=== PATIENT | male | born 1995 | race Caucasian/White ===

== ENCOUNTER 2025-04-23 09:33 | Outpatient (RCR) | payer OTHER, SELFPAY ==
--- NOTE | 2025-04-23 09:05 | BH.SGPN.GN ---
Behaviors/Verbalizations/Mental Status: [] Eye contact is good. Motor activity is appropriate. Appearance is casual. Speech is Appropriate. Mood is depressed. Affect is flat. Thoughts are linear and logical. No evidence of psychosis. Reviewed daily check in sheet and no reports of suicidal ideations. Client Response/Progress/Benefit: [] Pt participated when prompted. Daily symptom tracker notes 2/5 for depression and agitation. Today was pt?s first day in IOP level of care. Very briefly introduced himself and shared with the group that his primary issue is related to depression. Did not elaborate any further. Group welcomed him and provided feedback and advice for his first day and week in IOP which was beneficial. No progress noted as this was his first day. Will continue in [facility] to maintain safety, prevent decompensation/re-admission to psych unit, and to improve functioning. Narrative Note: []
--- NOTE | 2025-04-23 10:00 | BH.SGPN.GN ---
Behaviors/Verbalizations/Mental Status: []Eye contact is good. Motor activity is appropriate. Appearance is casual. Speech is Appropriate. Mood is anxious and depressed. Affect is congruent. Thoughts are linear and logical. No evidence of psychosis. Client Response/Progress/Benefit: [] Pt was a semi-active participant in group discussions. Attentive during psychoeducation. Contributed when prompted during interactive discussions in which peers attempted to define crisis. Group identified crisis examples. Group also worked together to identify warning signs and unhealthy responses to crisis which included shutting down, isolation, avoidance, over-thinking, disordered eating, and self-harm. Pt identified top 3 warning signs as: racing thoughts, shutting down, and avoidance. Benefited from increased understanding of crisis and awareness of personal responses to crisis. Pt will continue IOP tx to promote mood stability, reduce negative thinking patterns, and increase distress tolerance. Narrative Note: []
--- NOTE | 2025-04-23 11:10 | BH.SGPN.GN ---
Behaviors/Verbalizations/Mental Status: []Pt alert and oriented, appropriate grooming/appearance. Eye contact fair. Motor activity appropriate. Speech within normal limits. Affect congruent, mood depressed and anxious. Thoughts linear, logical, no signs of hallucinations or delusions. Client Response/Progress/Benefit: []Pt was an engaged participant in group discussions. Attentive during psychoeducation. In small group pt along with peers developed an active plan for their crisis warning signs. Pt identified three crisis warning signs as well as an action plan for each. One crisis warning sign was ignoring the problem. Pt identified strategies to help with this such as: Journaling about the issue, choosing a decision instead of overly analyzing, talking to someone to get different perspective, and using opposite action. Benefited from increased awareness of crisis warning signs and by developing crisis intervention strategies. Will continue in IOP to increase healthy coping skills, improve daily functioning, and prevent decompensation
--- NOTE | 2025-04-23 15:04 | BH.COMM_ITS ---
Communication Note Communication with Client Communication Note: Met with pt to complete initial paperwork and administer the CSSR-S screening and risk assessment. Pt is a moderate risk based on symptoms from the past month. Pt denies any active SI, plan, or intent within the past month but does note thoughts of within the past month with passive thoughts of methods. Pt also has history of suicidal ideations that pt reports are fleeting and intrusive in nature, not because he wants to . Pt shared he had thoughts of shooting self, crashing car, or overdosing when he has been depressed and overwhelmed in the past. Pt stated these thoughts are more passive in nature and he does not want to kill self. No weapons at home per pt report. Patient was admitted to [facility] in March from 04/05/25 to 04/10/2025 for suicidal ideation. Admits that in November experienced some worsening depression secondary to some recognition of a porn addiction. Pt reports he does not want to but does not want to be in pain any longer. Pt is future oriented. Discussed case with Dr. Coulter and pt will be admitted to [facility] tx with a diagnosis of Major Depressive Disorder F33.2
--- NOTE | 2025-04-24 09:00 | BH.SGPN.GN ---
Behaviors/Verbalizations/Mental Status: [] Client alert and oriented, casual appearance. Eye contact fair. Motor activity appropriate. Speech within normal limits. Affect constricted, mood irritable. Thoughts linear, logical, no signs of hallucinations or delusions. Reviewed client's symptom tracker, no risk for suicidal ideation, plan, or intent. Client Response/Progress/Benefit: [] Client responded well to session AEB listening to others and sharing thoughts/feelings. Client stated mental health positive as gaining awareness from group topic yesterday that he has been using the defense mechanism of projection. Client reported it helped him understand how he has been coping and how it is negatively impacting to self and others. Client reported current stressor as work still hasn't responded about if his leave of absence is approved. Client stated it is common to not get a response for 2-3 weeks which he stated is incredibly frustrating. Appeared to benefit from support from peers. Will continue IOP tx to improve emotion regulation, challenge distorted thoughts, and prevent decompensation. Narrative Note: []
--- NOTE | 2025-04-24 10:10 | BH.SGPN.GN ---
Behaviors/Verbalizations/Mental Status: [ ] Client alert and oriented, casually dressed and groomed. Eye contact good. Motor activity appropriate. Speech within normal limits. Affect congruent, mood euthymic. Thoughts linear, logical, no signs of hallucinations or delusions. Client Response/Progress/Benefit: [] Client was an semi active participant in activity and taking notes during group discussion. Attentive during psychoeducation on coping skills, why people use unhealthy coping skills, and how to replace unhealthy coping skills. Benefited from increased understanding of unhealthy coping skills and the need for developing healthy interna and external coping skills. Client will continue IOP tx to prevent decompensation, increase self care, and improve daily functioning. Narrative Note: []
--- NOTE | 2025-04-24 11:10 | BH.SGPN.GN ---
Behaviors/Verbalizations/Mental Status: [] Client alert and oriented, casually dressed and groomed. Eye contact good. Motor activity appropriate. Speech within normal limits. Affect congruent mood euthymic. Thoughts linear, logical, no signs of hallucinations or delusions. Client Response/Progress/Benefit: [] Client responded well to session AEB taking notes and providing some input and examples throughout. Group discussed the different categories of coping skills which included distraction, emotional release, grounding, self-love, and thought challenging. Client created a coping skill menu identifying various skills to try in each category. Client?s coping skill menu included:walking, journaling, meditation, postive thoughts, and checking evidence of thoughts. Appeared to benefit from increasing repertoire of healthy coping skills. Client will continue IOP tx to improve daily functioning, reduce negative thinking, and increase application of healthy coping skills. Narrative Note: []
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
--- NOTE | 2025-04-25 07:52 | BH.DR.ITP ---
Initial Treatment Plan Patient Information Visit Information: Initial Treatment Plan Patient Information Visit Information: ADMISSION DATE: EXPECTED LOS: 4-6 weeks Problems/Symptoms Problem #1:: Depression Symptom:: Sadness, hopelessness, worthlessness, anhedonia, low energy, recent suicidal ideation, low motivation Problem #2:: Anxiety Symptom:: Rumination, worry
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
[2025-04-25 08:31] VITALS: BP 136/87; PULSE 78
--- NOTE | 2025-04-25 09:05 | BH.SGPN.GN ---
Behaviors/Verbalizations/Mental Status: [] Eye contact is good. Motor activity is appropriate. Appearance is casual. Speech is Appropriate. Mood is depressed. Affect is congruent. Thoughts are linear and logical. No evidence of psychosis. Reviewed daily check in sheet and pt reports 3/5 for suicidal ideations and 3/5 for intent. Therapist to meet with patient today. Client Response/Progress/Benefit: [] Pt participated when prompted however check-in was very brief. Daily symptom tracker notes 3/5 for depression and 2/5 for agitation and self-harm urges. Unable to identify any mental health wins or healthy habits. He stated issue with his relationship however did not elaborate. Distracted and disengaged. No progress noted. Will continue in IOP to maintain safety, prevent decompensation/re-admission to psych unit, and to increase healthy coping. Narrative Note: []
--- NOTE | 2025-04-25 10:40 | BH.MDN ---
Multi-Disciplinary Note Note 60-min Individual: Time Started:: 10:40 Date: 04/28/25 Purpose of session/treatment goals addressed:: Utilized session to gather pertinent history, review current symptoms, and begin to develop treatment plan. Eye Contact:: Poor Motor Activity:: Appropriate Appearance:: Disheveled Speech:: Soft Mood:: Depressed Affect:: Flat Thoughts:: Linear Staff Interventions:: rapport building, treatment planning and goal setting Client Response:: Tearful throughout the session. He had declined to share in process group this AM and appear depressed and flat. Shared that pt and his fianc? often search out and view videos/podcasts which provide psychoeducation on his mental health struggles. He shared that this can be very intense. In the recent past a video caused such significant distress that he cried in the parking lot for almost an hour. A video they watched last night caused decompensation as well as he began to blame himself for communication issues with fianc?. He elaborated that the video described how he manipulates others by being quiet. By not responding or communicating effectively his fianc? will internalize and blame herself. While these videos provide insight they do not elaborate on strategies or skills to put into action. I don't know what to do next. Therefore he is watching videos pointing out his flaws and struggles throughout the day which appears to be adding to his distress leading to depression as well as feeling overwhelmed. Conversation on the consequences of insight w/o action and we worked together to identify treatment plan goals. Develop a few simple strategies to improve communication this weekend. Risks/Concerns:: Denied active suicidal ideations, plan, or intent. Daily symptom tracker notes 3/5 for SI and 2/5 for intent however pt only reports passive thoughts of and survival ambivalence. Future-oriented. Protective factors reported. Ruminating on the video he watched last night. Agreed to stop watching these videos while in IOP as they appear to be causing more distress. Complete CRSS- since last admission. Does not present as imminent danger to himself. Aware of crisis numbers and reviewed safety plan. Encouraged to call crisis or go to ER if SI worsens. Progress Toward Goals/Plan:: No progress note. Consistent attendance this week however engagement is limited. Depressed, tearful, and hopeless that he can't address all of my issues. He is interested in several of Herberth Mckenzie's concepts include the shadow self and archetypes (Wounded healer and innocence). This has led to seeking out information and insight through videos which is adding insight however also causing more distress. Insight and awareness with action or strategy makes pt feel overwhelmed causing him to shutdown. Developed treatment plan. Goals reported by patient are 1. take action on my mental health and improve communication skills. Will continue in IOP to maintain safety, prevent decompensation/stabilize mood, and improve functioning. Time Stopped:: 11:40
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
--- NOTE | 2025-04-25 10:40 | BH.MTP_ITS ---
Master Treatment Plan Patient Information Program Physician:: Dr. Warren Coulter Primary Therapist:: Castro Whiteside Psychiatric Diagnoses Psychiatric Diagnoses:: Major depressive disorder, single episode, unspecified Diagnosis Code(s):: F32.9 Estimated LOS Estimated LOS (in weeks):: 8 Problem/Goal #1 Problem/Goal #1 Stated Goal:: Client will reduce depressive symptoms, worthlessness, lack of concentration, suicidal thoughts, negative thoughts, and negative core beliefs AEB self-report and decreased scores on the depression and suicidal ideation domains of the DSM5 cross-cutting scales. Description of Barriers: Limited current coping skills, limited support, addiction, and long-standing depression symptoms with limited progress. Functional Impact: Recent psychiatric admission for suicidal ideations. Currently on FMLA due to mental health. Goal Relevant Strengths/Supports: Intelligent. Insightful Primary support is his fiance Objectives Objective #1: Stated Objective: Client will identify and replace 2-3 negative thinking patterns that reinforce depressive symptoms, self-hate, and negative self-talk. Interventions: Through individual and group counseling will assist client in recognizing triggers for increased self-deprecating and depressive thought patterns. Therapist will help client explore connection between thoughts, feelings, and actions and help client reframe depressive thought patterns. Discharge Criteria: Able to identify 2 negative thinking pattern impacting depression and be able to consistently implement skills. Decrease scores on the depression domain Target Date: 06/11/25 Review Date: 05/14/25 Objective #2: Stated Objective: Client will work with therapist to develop a concrete ?crisis plan? or emotional dysregulation plan to implement during depressive episodes or acute events which includes emergency telephone numbers, internal/external coping strategies for SI/overwhelming emotions, lists of supports, warning signs, positive aspects of life, and motivations Interventions: Through group and individual counseling pt will be provided with skills, strategies, and education on developing a crisis plan. Discharge Criteria: Completed plan. Target Date: 06/11/25 Review Date: 05/14/25 Problem/Goal #2 Problem/Goal #2 Stated Goal:: Client will increase emotional regulation and reduce intensity and duration of anxiety symptoms AEB self-report and decrease score on the anxiety domain of the DSM5 cross-cutting scales. Description of Barriers: Limited current coping skills, limited support, addiction, and long-standing mental health symptoms with limited benefit from medications and traditional outpatient,. Functional Impact: Recent psychiatric admission for mixture of anxiety and depression. Currently on FMLA for work due to mental health. Goal Relevant Strengths/Supports: Intelligent. Insightful Primary support is fiance. Objectives Objective #1: Stated Objective: Client will identify 2-3 cognitive distortions that lead to rumination and learn 2-3 ways to manage these thoughts to better manage anxiety as shown by reduced DSM-5 scores for anxiety. Interventions: Through individual and group counseling will provide education on the most common cognitive distortions and teach client the connection between thoughts, emotions, and feelings. Therapist will assist cli ent in identifying, challenging, and replacing dysfunctional thoughts with positive, more realistic thoughts. Discharge Criteria: Able to identify 3 commonly used cogntivie distortions and ways to reframe/challenge these distortions. Target Date: 06/11/25 Review Date: 05/14/25
--- NOTE | 2025-04-28 09:05 | BH.SGPN.GN ---
Behaviors/Verbalizations/Mental Status: [] Eye contact is good. Motor activity is appropriate. Appearance is casual. Speech is Appropriate. Mood is depressed and anxious. Affect is congruent. Thoughts are linear and logical. No evidence of psychosis. Reviewed daily check in sheet and no reports of suicidal ideations or intent. Client Response/Progress/Benefit: [] Pt participated at times during the group discussions. Attentive. Daily symptom tracker notes 10/13 for depression and anxiety. Pt was able to identify mental health wins and healthy habits. Utilized assertive communication to advocate for FMLA paperwork. Utilized self-care, distraction, and behavioral activation this weekend which was beneficial. Working on improving communication with his fianc? as well. Progress noted. Benefited from group support, encouragement, and feedback. Will continue in IOP to maintain safety, prevent decompensation/re-admission, and improve functioning to return to work. Narrative Note: []
--- NOTE | 2025-04-28 10:10 | BH.SGPN.GN ---
Behaviors/Verbalizations/Mental Status: [] Client alert and oriented, casually dressed and groomed. Eye contact fair. Motor activity appropriate. Speech within normal limits. Affect constricted, mood depressed. Thoughts linear, logical, no signs of hallucinations or delusions. Client Response/Progress/Benefit: [] Pt was an attentive and active participant, AEB taking notes and providing input in group discussion. Attentive during psychoeducation. Pt engaged during interactive discussion in which the group defined self-care and discussed its benefits. Group discussed barriers and benefits to self-care. Identified benefits as being more productive, feeling more grounded, feeling happier, decreased anxiety, better quality of life, and increased resilience. Pt participated in small groups where they worked to identify and challenged common self-care ?myths?. Benefited from increased awareness of self-care, its benefits, and the consequences of not utilizing self-care strategies. Will continue IOP tx to prevent decompensation, challenge distortions, and improve functioning.
--- NOTE | 2025-04-28 11:10 | BH.SGPN.GN ---
Behaviors/Verbalizations/Mental Status: []Client alert and oriented, casual appearance. Eye contact good. Motor activity appropriate. Speech within normal limits. Affect congruent, mood depressed and anxious. Thoughts linear, logical, no signs of hallucinations or delusions. Client Response/Progress/Benefit: [] Pt engaged participant AEB completing self-assessment worksheet and providing input throughout discussion. Pt completed worksheet identifying current self-care practices and what self-care activities Pt wants to start using. Pt selected emotional self-care to begin practicing more consistently. Pt plans to do this by working on saying no without guilt and practicing daily gratitude. Appeared to benefit from completing the self-care evaluation and gaining insights into current self-care practices, as well as identifying areas in which Pt would like to improve upon. Pt will continue IOP tx to prevent decompensation, promote self-compassion, and increase distress tolerance skills. Narrative Note: []
--- NOTE | 2025-04-29 11:00 | BH.COMM ---
Communication Note Communication with Client Communication Note: Pt did not show for IOP this AM. Therapist called and left VM. Pt's daily symptom tracker from 04/28/25 had no significant distress or suicidal ideation. Did not report significant distress yesterday and presented in good spirits. Currently lives with fianc? who is positive support. No indicators for safety check noted.
--- NOTE | 2025-04-30 11:17 | BH.COMM_ITS ---
Communication Note Communication with Client Communication Note: Pt called back this AM and briefly spoke with this therapist. He explained that the reason he no showed yesterday was due to concerns related to attire of a group member which he believes was inappropriate and distracting. He did not disclose any significant depressive issues or mental health decompensation. Listened to all his concerns and asked for time to discuss with treatment team. After discussion with team called patient back. Refer below. Patient expressed discomfort related to the presence and attire of another group member in the in-person IOP setting. The patient is currently early in treatment outside of IOP for symptoms related to Compulsive Sexual Behaviors, specifically Problematic Pornography Use (PPU). The patient believes that the peer?s clothing has contributed to increased difficulty in managing intrusive thoughts and maintaining therapeutic focus during group sessions. The treatment team convened to review the patient?s concerns and assess the appropriateness of the peer in question. After discussion, the consensus was that the peer?s clothing was not significantly inappropriate or distracting within the context of the program or broader societal norms. The attire in question is commonly seen in various public settings. At this time, no other clients have reported similar concerns. It was also noted that while some scheduling flexibility can be offered, it is important to recognize that mental health challenges, trauma, and symptoms such as hypomania can influence clothing choices. Addressing these underlying issues therapeutically is a umana component of treatment. Attempts to externally control such factors may inadvertently contribute to clinical setbacks or decompensation. Assessment: Given the presence of ongoing environmental triggers and the anticipated addition of younger female clients to the program, the current in-person, mixed- gender IOP setting may not provide the most therapeutically supportive environment for this patient. It is neither feasible nor clinically appropriate for staff to monitor or regulate all participants? attire, particularly as triggers are inherently subjective and vary significantly between individuals. Continued participation under these conditions may increase the risk of emotional distress, disengagement from treatment, or clinical deterioration. The patient may benefit more from a treatment setting with a more focused population, such as an all-male IOP program. Plan: ?Offered the patient the option to attend in-person IOP twice weekly on days when the identified peer is not present.(He declined) ?Recommend transitioning to a virtual IOP setting that better aligns with the patient?s current clinical needs and treatment goals. ?Provided referral to [facility], a national virtual IOP program offering specialized groups (e.g., all-male, trauma-focused, CSBD/PPU-focused). Patient was informed that intake could begin as early as today or tomorrow. ?Encouraged the patient to reach out if he had any additional questions. Agreed that he would get linked with [facility] and that he would be discharged from our IOP program.
--- NOTE | 2025-04-30 13:29 | BH.DS_ITS ---
Discharge Summary Demographics Discharge Date: 04/30/25
--- NOTE | 2025-04-30 13:29 | BH.DS ---
Discharge Summary Demographics Discharge Date: 04/30/25
--- NOTE | 2025-05-02 09:15 | BH.MDN_ITS ---
Multi-Disciplinary Note Note 60-min Individual: Time Started:: 09:15 Date: 05/02/25 Purpose of session/treatment goals addressed:: Reviewed current symptoms and progress. Eye Contact:: Fair (often looks at ground during the session. ) Motor Activity:: Appropriate Appearance:: Casual Speech:: Appropriate Mood:: Anxious and Depressed Affect:: Congruent Thoughts:: Linear, Logical and No evidence of hallucinations/delusions noted Staff Interventions:: rapport building and treatment planning Client Response:: According to patient he has made progress since last session. Has followed though with goals to reduce amount of time researching psychoeducational videos as they were causing distress and decompensation. He also followed though with other action strategies discussed last session around assertive communication. Things are better. Improved communication with fianc?. 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 It feels comfortable. This leads most conversation to result in intense discussion and heavy emotions as well as continued research into very complex psychological topics. As noted in previous notes at this point these choices are causing more distress. Reports that lighthearted and fun conversations are harder to have. Developed action strategies regarding boundary setting in regards to conversations. Also discussed opportunities in IOP to practice superficial and small talk with peers. Risks/Concerns:: No concerns or risks reported. Daily symptom tracker has not reports of suicidal ideation. Progress Toward Goals/Plan:: Progress reported per pt. Pt prefers insight- oriented therapy in which he identifies the root cause of his struggles. While this can be beneficial he struggles with developing action strategies after obtaining insight. This has been focus of last two sessions. Responding well. We discussed porn addiction and therapist was clear that he is not specialized in this and provided local referrals. While conversations and skills can be processed was encouraged to seek specialist. Primary goal of IOP is to maintain safety, stabilize emotions, and prevent re-admission to psych unit. Time Stopped:: 10:15
--- NOTE | 2025-05-02 10:15 | BH.SGPN.GN ---
Behaviors/Verbalizations/Mental Status: [] Client alert and oriented, casual appearance. Eye contact fair. Motor activity appropriate. Speech within normal limits. Affect constricted, mood dysthymic. Thoughts linear, logical, no signs of hallucinations or delusions. Client Response/Progress/Benefit: []Client responded well to session AEB listening attentively to peers, taking notes, and engaging in discussions. Client attentive to psychoeducation about different styles of decision making. Client engaged in discussion about internal and external influences that impact decision making. Group identified internal influences that impact decision making to include self-talk, anxiety, mood, and past experiences. Group identified external influences that impact decision making to include opinions from others, peer pressure, societal or cultural norms, and finances. Client seemed to benefit from increased awareness and understanding of different decision making styles. Plan is for client to continue IOP to improve distress tolerance, challenge distorted thought patterns, and prevent decompensation.
--- NOTE | 2025-05-02 11:15 | BH.SGPN.GN ---
Behaviors/Verbalizations/Mental Status: []Pt alert and oriented, casually dressed and groomed. Eye contact good. Motor activity appropriate. Speech within normal limits. Affect congruent, mood depressed and anxious. Thoughts linear, logical, no signs of hallucinations or delusions. Client Response/Progress/Benefit: [] Pt took notes and contributed to group discussions and was an active participant in activity. Pt engaged in continued discussion on decision making styles and pros and cons of each. Pt actively participated in experiential activity in which the group was given a scenario and prompted to decide what they would do. Did well to actively reflect on the various factors influencing their identified decisions as well. Pt worked with group to then identify several strategies for improving healthy decision making skills. Pt shared wanting to work on improving ability to use delay, distract, decide as well as reach out to supports before making decisions. Pt appeared to benefit from learning about building healthy decision making processes. Will continue IOP tx to improve mood stability, increase distress tolerance, and prevent decompensation. ? Narrative Note: []
--- NOTE | 2025-05-05 09:00 | BH.SGPN.GN ---
Behaviors/Verbalizations/Mental Status: Client alert and oriented, casual appearance. Eye contact poor. Motor activity appropriate. Speech within normal limits. Affect constricted, mood dysthymic. Thoughts linear, logical, no signs of hallucinations or delusions. Reviewed client's symptom tracker, no risk for suicidal ideation, plan, or intent. Client Response/Progress/Benefit: []Client responded well to session AEB listening to others and sharing thoughts/feelings. Per daily symptom tracker client reported a 1/5 for depressed mood and a 0/5 for anxious mood. Client noted on symptom tracker that that his ability to function is improved. Client stated mental health positive as getting to spend a lot of time with his fianc? over the weekend. Client reported additional mental positive as being able to use his knowledge about plants to help him take care of of a bee sting he had over the weekend. Client noted current stressors as impending difficult things he needs to deal with and financial issues. Client appeared to benefit from support from peers. Will continue IOP tx to improve emotional regulation, challenge distortions, and prevent decompensation. Narrative Note: []
--- NOTE | 2025-05-05 10:00 | BH.SGPN.GN ---
Behaviors/Verbalizations/Mental Status: [] Eye contact is good. Motor activity is appropriate. Appearance is casual. Speech is Appropriate. Mood is dysthymic. Affect is congruent. Thoughts are linear and logical. No evidence of psychosis. Client Response/Progress/Benefit: [] Pt participated in the group discussions AEB providing input and taking notes. Attentive during psychoeducation on SMART Goal Setting. Pt worked with group to identify common barriers to goal setting which included; mental health struggles, energy/motivation, limited support, change to routine, limited knowledge how to set goals, having unrealistic goals, and our internal expectations. Group also identified benefits of goals, which included: can map progress, it challenges one, can boast confidence, and can cause positive change/growth. Pt identified personal benefits to goal setting. Benefited from increased awareness of mental health benefits of goals as well as psychoeducation on SMART goal criteria. Will continue in IOP to prevent decompensation/re-admission to psych unit, increase healthy coping, and improve functioning to return to work. Narrative Note: []
--- NOTE | 2025-05-05 11:05 | BH.SGPN.GN ---
Behaviors/Verbalizations/Mental Status: []Pt alert and oriented. Appearance is casual, hygiene is appropriate. Eye contact good. Motor activity appropriate. Speech within normal limits. Affect is anxious. Mood is constricted. Thoughts linear, logical, no signs of hallucinations or delusions. Client Response/Progress/Benefit: [] Pt was engaged during discussion and experiential activity. Completed the worksheet challenging them to develop a personal SMART goal. Pt chose a SMART goal to dig the reminder of the garden plot by Monday. Pt believes this goal will benefit pt through exercise and accomplishment. Identified obstacles such as weather, difficulty following through with things, and procrastination. Pt was able to identify solutions including working with music, scheduling time for the activity, and checking the weather before. Benefited from this group by developing a short-term SMART goal related to mental health. Will continue IOP to prevent decompensation, stabilize mood, and improve functioning Narrative Note: []
--- NOTE | 2025-05-07 09:05 | BH.SGPN.GN ---
Behaviors/Verbalizations/Mental Status: [] Eye contact is good. Motor activity is appropriate. Appearance is casual. Speech is Appropriate. Mood is dysthymic. Affect is congruent. Thoughts are linear and logical. No evidence of psychosis. Reviewed daily check in sheet and no reports of suicidal ideations or intent. Client Response/Progress/Benefit: [] Pt participated at times during the group discussions. Attentive. Daily symptom tracker notes 10/13 for depression. Able to identify mental health wins and healthy habits. Completeing opposite-action and engaging in self-care activities on consistent basis. Increase purpose and meaning throughout the day. Feeling ? positive and neutral? today. Progress noted. Benefited from group support, encouragement, and feedback. Will continue in IOP to maintain safety, prevent decompensation/re-admission to psych unit, and to improve functioning to return to work. Narrative Note: []
--- NOTE | 2025-05-07 10:10 | BH.SGPN.GN ---
Behaviors/Verbalizations/Mental Status: [] Eye contact is good. Motor activity is appropriate. Appearance is casual. Speech is Appropriate. Mood is depressed. Affect is congruent. Thoughts are linear and logical. No evidence of psychosis. Client Response/Progress/Benefit: [] Client engaged participant at times during group session as evidenced by contributions during group discussions, appearing to listen to others, and taking notes. Client engaged in discussion about barriers that keep people from having difficult confrontations. Group identified potential reasons individuals avoid difficult conversations which included; feeling uncomfortable, reaction of others, fear, and avoiding conflict. Group also identified benefits to having crucial conversations. Pt identified things they do that impact their communication shutting down or avoiding. Client seemed to benefit from increased awareness and education about importance of having difficult conversations and recognizing the impact of avoiding such conversations. Client to continue IOP to prevent decompensation, increase healthy coping, and improve functioning. Narrative Note: []
--- NOTE | 2025-05-07 11:10 | BH.SGPN.GN ---
Behaviors/Verbalizations/Mental Status: [] Eye contact is good. Motor activity is appropriate. Appearance is casual. Speech is Appropriate. Mood is euthymic. Affect is full. Thoughts are linear and logical. Client Response/Progress/Benefit: [] Narrative Note: []
== END 2025-05-08 23:59 ==
LOC: BHIOP 09:33
PROVIDERS: Referring Provider Student in an Organized Health Care Education/Training Program; Visit Provider Student in an Organized Health Care Education/Training Program
DX: F32.9 Major depressive disorder, single episode, unspecified (principal); F43.10 Post-traumatic stress disorder, unspecified
CPT/HCPCS: S9480; 90837; 90853

== ENCOUNTER 2025-05-09 07:50 | Outpatient (RCR) | payer OTHER, SELFPAY ==
--- NOTE | 2025-05-09 09:05 | BH.SGPN.GN ---
Behaviors/Verbalizations/Mental Status: [] Eye contact is good. Motor activity is appropriate. Appearance is casual. Speech is Appropriate. Mood is dysthymic. Affect is congruent. Thoughts are linear and logical. No evidence of psychosis. Reviewed daily check in sheet and no reports of suicidal ideations or intent. Client Response/Progress/Benefit: [] Pt participated when prompted. Attentive. Daily symptom tracker notes 10/13 for depression and anxiety. Able to identify mental health wins and healthy habits. Has been using behavioral activation and opposite action consistently which has improved mood, engagement, and meaning. Progress noted. Benefited from group support, encouragement, and feedback. Will continue in IOP to prevent decompensation/re-admission to psych unit, maintain safety, and increase healthy coping. Narrative Note: []
--- NOTE | 2025-05-09 11:15 | BH.SGPN.GN ---
Behaviors/Verbalizations/Mental Status: [] Eye contact is good. Motor activity is appropriate. Appearance is casual. Speech is Appropriate. Mood is depressed. Affect is congruent. Thoughts are linear and logical. No evidence of psychosis. Client Response/Progress/Benefit: [] Pt was an active participant AEB pt providing input and listening attentively to peers. Attentive during psychoeducation on mindfulness coping skills, body-based coping skills, and mind-based coping skills and their impact on reducing anxiety and improving overall mental health wellness. Group was able to identify self-soothing and mind-based coping skills which included: 5-senses, meditation, deep breathing,walking/exercise, music, engaging with others, opposite-action, and affirmations. Pt verbalized skill to make effort to use this week as opposite action. Pt will continue IOP to prevent decompensation/re-admission to psych unit, stabilize depression, maintain safety, increase healthy coping, and improve functioning to return to work. Narrative Note: []
--- NOTE | 2025-05-12 09:05 | BH.SGPN.GN ---
Behaviors/Verbalizations/Mental Status: [] Eye contact is good. Motor activity is appropriate. Appearance is casual. Speech is Appropriate. Mood is dysthymic. Affect is congruent. Thoughts are linear and logical. No evidence of psychosis. Reviewed daily check in sheet and no reports of suicidal ideations or intent. Client Response/Progress/Benefit: [] Pt participated at times during the group discussions. Attentive. Daily symptom tracker notes 2/5 for anxiety and 1/5 for depression. Able to identify mental health wins and healthy habits. Shared two situations in which he used assertive communication and behavioral activation. He has appointment with new therapist this afternoon which is causing anxiety. Feeling restless today. Progress noted. Benefited from group support, encouragement,and feedback. Will continue in IOP to prevent decompensation/re-admission, maintain safety, and improve functioning to return to work. Narrative Note: []
--- NOTE | 2025-05-12 10:10 | BH.SGPN.GN ---
Behaviors/Verbalizations/Mental Status: []Eye contact is fair. Motor activity is appropriate. Appearance is casual. Speech is Appropriate. Mood is depressed. Affect is constricted. Thoughts are linear and logical. No evidence of psychosis. Client Response/Progress/Benefit: []Pt was an semi-active participant in group discussions. Attentive during psychoeducation on the 4 communication styles (Passive, Passive-Aggressive, Aggressive, and Assertive) and the obstacles to effective communication. Contributed during interactive discussion on the benefits of communicating effectively. Worked well with peers to identify the benefits and disadvantages to the different communication styles. Pt believes that he is primarily aggressive and passive-aggressive. Stated he holds onto his anger and leads to his needs not being met. Benefited from increased understanding of communication styles and how these can impact effective communication. Will continue in IOP to improve distress tolerance, challenge negative thoughts, and prevent decompensation. Narrative Note: []
--- NOTE | 2025-05-12 11:15 | BH.SGPN.GN ---
Behaviors/Verbalizations/Mental Status: []Pt alert and oriented, casually dressed and groomed. Eye contact good. Motor activity restless. Speech within normal limits. Affect congruent, mood anxious. Thoughts linear, logical, no signs of hallucinations or delusions. Client Response/Progress/Benefit: [] Pt responded well to session AEB Pt listening attentively to others and providing input during group discussion on the pay offs and costs of the different communication styles. Pt able to connect how current communication style impacts mental health. Connected with peers? comments about the importance of using assertive communication. Pt seemed to benefit from increasing awareness of healthy strategies to improve communication and worked with peers during the experiential activity to practice assertive communication. Pt reported wanting to work on ?planning what I?m going to say before I say it.? Will continue IOP tx to prevent decompensation, improve daily functioning, and combat distortions. Narrative Note: []
--- NOTE | 2025-05-16 09:05 | BH.SGPN.GN ---
Behaviors/Verbalizations/Mental Status: [] Pt alert and oriented, neatly dressed and groomed. Eye contact good. Motor activity appropriate. Speech within normal limits. Affect flat, mood depressed. Thoughts linear, logical, no signs of hallucinations or delusions. Reviewed pt?s symptom tracker, no risk for suicidal ideation, plan, or intent 05/16/25. Client Response/Progress/Benefit: []Pt participated in the ice breaker activity, but pt declined to share during group. Pt appeared to be disconnected. Pt did not indicate any risk factors on his daily symptom tracker. Pt still appeared to benefit from not isolating today. Pt will continue IOP tx to prevent decompensation, improve daily functioning, and increase distress tolerance skills. Narrative Note: []
--- NOTE | 2025-05-16 10:04 | BH.SGPN.GN ---
Behaviors/Verbalizations/Mental Status: [] Eye contact is good. Motor activity is appropriate. Appearance is casual. Speech is Appropriate. Mood is depressed. Affect is congruent. Thoughts are linear and logical. No evidence of psychosis. Client Response/Progress/Benefit: [] Pt engaged participant AEB listening to others, engaging in activity, and providing feedback throughout. Attentive during psychoeducation and provided insight into obstacles that impede mental wellness. Pt shared with group current mental health reality and desired mental health reality. Identified barriers to desired reality which included difficulties with communication, and guilt. Benefited from taking look at current mental health state and obstacles for progress. Pt to d/c from IOP today and continue IOP tx to prevent decompensation, stabilize mood, and improve functioning. Narrative Note: []
--- NOTE | 2025-05-16 11:09 | PCM.BH.PN ---
Intake Vital Signs 04/25/25 08:31 05/16/25 11:09 Height 1.78 m 1.78 m Weight: 70.307 kg BP 136/87 H Pulse 78 Intake Visit Reasons: f/u mdd, ptsd Allergies gluten Allergy (Verified 04/25/25 08:19) has celiac disease Medications ?Medication ?Instructions ?Recorded ?Confirmed ?Type bupropion HCl 150 mg 24 hr tablet, 150 mg PO DAILY #30 tabs 04/25/25 Rx extended release (Wellbutrin XL) trazodone 50 mg tablet 50 mg PO QHS PRN sleep 04/25/25 04/25/25 History HPI () History of Present Illness History provided by: patient Chief complaint: f/u MDD, PTSD HPI: -Current psychiatric medications: Wellbutrin 150 mg, trazodone 50 mg -SUBJECTVE: Not doing well today. He reports he has had some increased suicidal thoughts over the past couple of days that he did commit to safety and did not have intent to harm himself today or over the weekend. Noted he had some HI last week regarding someone he knew but that resolved and he has had no feelings like that whatsoever since and has no intent on killing or harming anyone. Reports he is sleeping okay and does not have anxiety but just does not feel well. Fairly evasive and did not want to disclose much information during our interview. Eventually did say he felt Wellbutrin made him more irritable and restless so he has not taken it for couple of days but has not noticed much of a difference. Developmental History Developmental History: GUIDO is the [ ORDER]. The pt was born and raised in [ ]. Education level completed [ ]. Pt describes his/her childhood as [ ]. Exam Mental Status Exam- Psych () Appearance casually dressed and adequately groomed Attitude guarded, evasive and withdrawn Activity/Motor Behavior psychomotor slowing, limited eye contact and downcast eyes Speech minimal Mood apathetic Affect blunted Thought Process other (Appeared to have thought blocking) Thought Content no delusions and no hallucinations Suicidal Ideation passive (Thoughts of not wanting to be alive but commits to safety) Homicidal Ideation none (Denies any HI at this time) Attention impaired Concentration impaired Sensorium/Orientation awake and alert Memory/Cognition impaired and other Insight fair and questionable Judgement fair and questionable Assessment & Plan () Assessment & Plan (1) Major depressive disorder: Plan: Patient reports some increased SI over the past couple of days but did commit to safety, was very evasive and not willing to discuss many of his symptoms but does say he has minimal anxiety that he is sleeping well. Said he had some fleeting HI about a week ago that he did not act on and has completely resolved and has no thoughts or feelings surrounding HI anymore, he would not discuss this further but when asked if it was towards anyone in our program he did say that it was not. Did stop taking his Wellbutrin as he felt it made him more restless and irritable, discussed other medication trials extensively and patient overall reluctant to start/trial anything else, ultimately discussed fluoxetine and Remeron and possibly trying 1 of those, patient said he would think about it, wrote the names of these down and advised to let us know. Will recommend patient follow-up with Dr. Coulter in a week as he was particularly reluctant to engage in our interaction and given his vacillating symptoms may benefit from being seen sooner rather than later. Continue IOP (2) PTSD (post-traumatic stress disorder): Visit Details Comments: Spent a total of [ ] minutes on the date of the service which included [ ]. Charges/Coding Behavior Health Behavior Health EST Pt E/M: 07204 Est Pt Level IV
--- NOTE | 2025-05-19 09:05 | BH.SGPN.GN ---
Behaviors/Verbalizations/Mental Status: [] Eye contact is good. Motor activity is appropriate. Appearance is casual. Speech is Appropriate. Mood is depressed and irritable. Affect is flat. Thoughts are linear and logical. No evidence of psychosis. Reviewed daily check in sheet and no reports of suicidal ideations or intent. Client Response/Progress/Benefit: [] Pt did not participate in group discussions. Not attentive. Disengaged. Declined to share. Symptom tracker notes 2/5 for agitation and 1/5 for depression. Limited progress or benefits noted as pt did not talk or engaged in group at all. Therapist will meet with pt individually after group. Will continue in IOP to maintain safety, prevent decompensation/re-admission to psych unit, and to improve functioning to return to work. Narrative Note: []
--- NOTE | 2025-05-19 10:30 | BH.MDN_ITS ---
Multi-Disciplinary Note Note 60-min Individual: Time Started:: 10:30 Date: 05/19/25 Purpose of session/treatment goals addressed:: Review current symptoms and progress in IOP. Eye Contact:: Poor Motor Activity:: Appropriate Appearance:: Casual Speech:: Soft (slowed response to questions. I'm shutting down frequently which he reports has been occurring my whole life) Mood:: Depressed Affect:: Flat Thoughts:: Linear, Logical and No evidence of hallucinations/delusions noted Client Response:: Client reports difficulty with verbal communication, particularly when feeling overwhelmed. He describes experiencing multiple potential responses to questions but struggles to select the most appropriate one, fearing that he may say something that could worsen the situation. As a result, he often chooses not to respond. He attributes this pattern to longstanding issues dating back to childhood, which he believes are connected to his relationship with his mother. The client is aware that this behavior may be perceived by others as evasive, guarded, or uncooperative, and acknowledges its negative impact on interpersonal relationships. During pre-admission intake and the initial IOP session, the therapist observed instances of the client shutting down when discussing emotionally charged or complex topics. He is able to engage in conversation around neutral or superficial subjects (e.g., weather, hobbies), but becomes noticeably withdrawn when the dialogue shifts to deeper emotional content. Response latency is notable, with delays of up to two minutes in answering questions, which affects the flow of the session and therapeutic progress. Client began experiencing adverse effects from Wellbutrin on 05/14/2025, including restlessness, irritability, and passive thoughts of /survival ambivalence and harm to others (HI). The medication was prescribed approximately two months prior during a psychiatric hospitalization at [facility]. Upon experiencing these symptoms, the client discontinued the medication and reports that the side effects have since resolved. He expressed significant guilt, shame, and embarrassment regarding the HI, which he describes as a fleeting thought following an argument with his fianc?e. He immediately removed himself from the environment and disclosed the incident to her. The couple has since reconciled, and the client has moved back into the shared residence. A collateral call was placed to the fianc?e for confirmation. Client denies any current SI or HI, and reports no history of violence. He does not present with an active plan or intent and is assessed to be at low risk. Passive thoughts of and survival ambivalence (better off ) were reported but did not escalate to active suicidal ideation. Since discontinuing the medication, the client reports decreased energy and motivation. He has ceased engaging in previously enjoyable self-care activities (e.g., nature walks, plant identification) and is experiencing increased social isolation. It is unclear whether this decline is medication-related or a result of intensified ruminative thinking and unresolved guilt.The session focused on identifying actionable strategies to address the client?s current sense of being stuck. Together, we developed three specific goals: One action to improve his relationship with his fianc?e today. One action to improve his mood today. One action to support self-forgiveness today. Cognitive restructuring techniques were used to challenge and reframe negative thought patterns. By the end of the session, the client appeared more engaged and was observed smiling. He continues to deny active SI or HI, and the daily symptom tracker corroborates the absence of suicidal ideation or intent. Risks/Concerns:: Client continues to deny any active suicidal ideation (SI) or homicidal ideation (HI). The daily symptom tracker does not indicate any SI or intent. Upon further discussion, it appears the client has not experienced suicidal ideation, nor has he ever had a plan or intent. He reports passive thoughts of and survival ambivalence (e.g., ?better off ?), which have not escalated to active SI. Regarding HI, the client describes a fleeting thought that occurred on 05/14/2025 following an argument with his fianc?e. He did not report any plan or intent, only a transient thought. He immediately removed himself from the triggering environment and disclosed the incident to his fianc?e. The couple has since worked through the issue, and the client has returned to the shared residence. A collateral call was placed to the fianc?e to confirm the course of events. Client denies any history of violence and has not reported any HI since 05/14/2025. He does not present as an imminent danger to self or others. Based on current presentation and collateral information, the client is assessed to be at low risk. Progress Toward Goals/Plan:: No progress noted. Decompensation reported which pt attributes to side effects from medication. Mostly disengaged from IOP however does present as attentive AEB by note-taking. Pt struggles with excessive ruminations on perceived flaws which leads to shutting down, isolation, poor communication, and worsening depression. These impact relationships with support. Pt has responded well to action strategies in the past to get himself unstuck rather than in a constant state of rumination. Will continue in IOP to prevent decompensation, increase healthy coping, and improve functioning. Scheduled to meet again with psychiatry this week to discuss medications. He declined medication intervention last week after stopping his Wellbutrin. Time Stopped:: 12:00
--- NOTE | 2025-05-23 08:14 | PCM.BH.PN ---
Intake Vital Signs 04/25/25 08:31 05/16/25 11:09 05/23/25 08:15 Height 5 ft 10 in 5 ft 10 in 5 ft 10 in Intake Visit Reasons: Follow-up Allergies gluten Allergy (Verified 04/25/25 08:19) has celiac disease Medications ?Medication ?Instructions ?Recorded ?Confirmed ?Type bupropion HCl 150 mg 24 hr tablet, 150 mg PO DAILY #30 tabs 04/25/25 Rx extended release (Wellbutrin XL) trazodone 50 mg tablet 50 mg PO QHS PRN sleep 04/25/25 04/25/25 History HPI () History of Present Illness History provided by: patient Chief complaint: f/u MDD, PTSD HPI: Polo Laura is a 29 year old male who presents today for follow up evaluation. Patient reports that he has been feeling more tired in recent past. Did have some irritability and anger in recent past which he attributed to wellbutrin and has since stopped. Denies any current thoughts of harm. Still feeling irritable about things I got to work through. Unwilling to expand upon that today. Has been able to sleep and eat largely well. Since stopping wellbutrin feels like side effects have resolved. Not interested in another medication at this time. Is looking in to finding a therapist. Review of systems () Constitutional Denies: fever(s), chills, change in weight or fatigue Eyes Denies: change in vision or blurry vision Ears, Nose, Mouth, Throat Denies: throat pain, neck pain or change in hearing Cardiovascular Denies: palpitations or dyspnea Respiratory Denies: dyspnea, cough or wheezing Gastrointestinal Denies: abdominal pain, nausea, vomiting, diarrhea or constipation Genitourinary Denies: dysuria or urinary frequency Musculoskeletal Denies: back pain, neck pain, joint pain or muscle weakness Integumentary/Breast Denies: rash or new lesions Neurological Denies: headache(s), dizziness or confusion Endocrine Denies: fatigue or excessive sweating Hematologic/Lymphatic Denies: easy bruising or easy bleeding Allergic/Immunologic Denies: wheezing Exam Mental Status Exam- Psych () Appearance casually dressed and adequately groomed Attitude guarded and withdrawn Activity/Motor Behavior psychomotor slowing, limited eye contact and downcast eyes Speech minimal Mood other (I got things got a work on) Affect constricted Thought Process other (Appeared to have thought blocking) Thought Content no delusions and no hallucinations Suicidal Ideation none Homicidal Ideation none (Denies any HI at this time) Attention impaired Concentration impaired Sensorium/Orientation awake and alert Memory/Cognition intact Insight fair and questionable Judgement fair and questionable Assessment & Plan () Assessment & Plan (1) Major depressive disorder: Plan: - Not interested in medications at this time - Has discontinued Wellbutrin (2) PTSD (post-traumatic stress disorder): Plan: - Continuing therapy Charges/Coding Multi Select Codes Behavior Health Behavior Health EST Pt E/M: 20032 Est Pt Level III
--- NOTE | 2025-05-23 09:00 | BH.SGPN.GN ---
Behaviors/Verbalizations/Mental Status: [] Client alert and oriented, casual appearance. Eye contact fair. Motor activity appropriate. Speech within normal limits. Affect constricted, mood content. Thoughts linear, logical, no signs of hallucinations or delusions. Reviewed client's symptom tracker, no risk for suicidal ideation, plan, or intent. Client Response/Progress/Benefit: [] Client responded well to session AEB listening to others and sharing thoughts/feelings. Client reported mental positive as driving 2 hours this morning to make it to IOP today since he went camping yesterday. Client stated while he was camping he met a srikanth as a couple came states been next to him and felt like it was really helpful to talk this srikanth about various topics. Client stated he really enjoyed the correlation he had with this neighbor and found it to be really helpful for his mood. Client noted current stressor is trying to find a therapist for his specific issues. Client stated feeling tired today. Appeared to benefit from support from peers. Will continue IOP tx to improve daily functioning, and challenge negative thoughts, and prevent decompensation Narrative Note: []
--- NOTE | 2025-05-23 10:00 | BH.SGPN.GN ---
Behaviors/Verbalizations/Mental Status: []Pt alert and oriented, casually dressed and groomed. Eye contact good. Motor activity appropriate. Speech within normal limits. Affect congruent, mood anxious. Thoughts linear, logical, no signs of hallucinations or delusions. Client Response/Progress/Benefit: [] Pt was an active participant in group discussions. Attentive during psychoeducation on the CBT Accord (Thoughts, Behaviors, Emotions). Engaged in group discussion on how thoughts and behaviors can contribute to maintaining adverse feelings, such as depression, anxiety, and irritability. Completed worksheet in which pt identified obstacles and/or thoughts that are keeping them stuck. Shared obstacles that included; not feeling good enough and feeling disconnected. Pt benefited from increased awareness of the basis of CBT therapy as well as specific thoughts that are impacting pt's progress. Will continue in IOP to prevent decompensation, improve daily functioning, and reduce negative thinking patterns. Narrative Note: []
--- NOTE | 2025-05-23 11:00 | BH.SGPN.GN ---
Behaviors/Verbalizations/Mental Status: []Pt alert and oriented, casually dressed and groomed. Eye contact good. Motor activity appropriate. Speech within normal limits. Affect congruent, mood anxious and depressed. Thoughts linear, logical, no signs of hallucinations or delusions. Client Response/Progress/Benefit: [] Pt responded well to session, contributing to discussion and attentive throughout. Pt identified a negative thought that has kept them stuck. Pt's thought was This is all my fault?. Pt reported when they think this way, pt isolates, over apologizes, or shuts down. Pt worked to reframe the thought by finding more rational, realistic ways to look at the thoughts and then processed them within group setting. Pt reframed the thought to ?I may have a role in it but it's not all on me?. Pt appeared to benefit from practicing challenging negative thinking with peers and gaining coping skills. Pt will continue IOP tx to promote mood stability, increase thought challenging, and further increase self-compassion. Narrative Note: []
--- NOTE | 2025-05-28 09:05 | BH.SGPN.GN ---
Behaviors/Verbalizations/Mental Status: [] Eye contact is good. Motor activity is appropriate. Appearance is casual. Speech is Appropriate. Mood is dysthymic. Affect is congruent. Thoughts are linear and logical. No evidence of psychosis. Reviewed daily check in sheet and no reports of suicidal ideations or intent. Client Response/Progress/Benefit: [] Pt participated when prompted. Attentive. Daily symptom tracker notes 10/13 for depression. Limited distress noted. Overall reports progress and was able to identify mental health wins and healthy habits. He went camping most of last week stating it was beneficial to ?get away for awhile?. States that he is trying to ?shift his attitude?. Feels ?calm? today. Identified recent stressors which include returning to work and finances. Progress noted. Benefited from group support, encouragement, and feedback. Will continue to in [facility] to maintain safety, prevent decompensation/re-admission to psych unit, and improve functioning to return to work. Narrative Note: []
--- NOTE | 2025-05-28 10:15 | BH.SGPN.GN ---
Behaviors/Verbalizations/Mental Status: []Eye contact is good. Motor activity is appropriate. Appearance is casual. Speech is Appropriate. Mood is dysthymic. Affect is congruent. Thoughts are linear and logical. No evidence of psychosis. Client Response/Progress/Benefit: [] Pt receptive to session AEB listening attentively to others and taking notes. Pt attentive and contributed throughout psychoeducation on the cognitive triangle and maintenance cycles. Pt engaged during group discussion reviewing the impact of daily activities and behaviors in either reinforcing unhealthy maintenance cycles and depression or assisting in reducing symptoms (?down? vs ?up? activities). Pt participated during interactive discussion in which pt identified their own common up activities (being in nature and talking with like-minded people) and down activities (isolating and canceling plans). Appeared to benefit from increased awareness of current behaviors and impact these have on mental health. Will continue IOP to increase distress tolerance, improve daily functioning, and reduce negative thinking patterns. Narrative Note: []
--- NOTE | 2025-05-28 10:57 | BH.TPR ---
Treatment Plan Review Demographics Date of Admission:: 04/23/25 Date of Treatment Plan Review:: 05/16/25 Admitting Diagnoses:: Major Depressive Disorder PTSD Current Diagnoses:: Major Depressive Disorder PTSD Patient Status Patient's Response to Treatment:: Pt has had consistent attendance, however limited engagement during group discussions. Attentive AEB by note-taking and does report benefits from psychoeducation groups. A review of DSM-5 outcome scores indicates an overall 23% reduction in symptoms. Notably, there has been a 40% decrease in the depression domain and a 67% decrease in the anger domain. However, there was a noted increase of 50% in the anxiety domain. Should also be noted that scores have not decompensated in the suicidal domain. Status of Current Problems and Symptoms: Client began experiencing adverse effects from Wellbutrin on 05/14/2025, including restlessness, irritability, and passive thoughts of /survival ambivalence and harm to others (HI). The medication was prescribed approximately two months prior during a psychiatric hospitalization at [facility]. Upon experiencing these symptoms, the client discontinued the medication and reports that the side effects have since resolved. He expressed significant guilt, shame, and embarrassment regarding the HI, which he describes as a fleeting thought following an argument with his rashaun. He immediately removed himself from the environment and disclosed the incident to her. He met with psychiatry today and was withdrawn. Declined to try another medication. Overall, there has been a reduction in symptoms since admission. However, the patient continues to experience notable anxiety, relationship conflict, depressive episodes, and reliance on maladaptive coping mechanisms. When experiencing anxiety, stress, or depressive symptoms, he tends to emotionally withdraw, which limits his ability to utilize coping skills and access social supports. These episodes of withdrawal can persist for several days. The patient will continue in [facility] to support safety, prevent further decompensation or psychiatric re-admission, and improve overall functioning in preparation for returning to work. He plans to resume work on a reduced schedule starting 06/09/25. Additionally, a couple?s session with his rashaun is scheduled for next week to support relational dynamics and communication. Progress Problem #1: Problem Name:: Depression Status of Goals:: Obj 1- Incomplete. Pt has gained insight into several negative thought patterns and is currently working on strategies for action Obj 2- Incomplete. Pt has gained knowledge and skill for coping strategies however the plan has not been created yet. Team Recommendations:: Continue with current goals. Recommendation for couple session with elio. Problem #2: Problem Name:: Anxiety Status of Goals:: Obj 1- Incomplete. Initial psychoeducation on cognitive distortions. Team Recommendations:: Continue with current goals.
--- NOTE | 2025-05-28 11:15 | BH.MDN_ITS ---
Multi-Disciplinary Note Note 60-min Individual: Time Started:: 11:15 Date: 05/28/25 Purpose of session/treatment goals addressed:: Reviewed current symptoms and progress in IOP. Today's session focused primarily reviewing DSM-5 outcomes as well as discharge and after plans. Eye Contact:: Fair Motor Activity:: Appropriate Appearance:: Casual Speech:: Appropriate Mood:: Dysthymic Affect:: Congruent Thoughts:: Linear, Logical and No evidence of hallucinations/delusions noted Staff Interventions:: discharge planning and reviewed DSM-5 Client Response:: The patient reports improved mood stability following the discontinuation of Wellbutrin two weeks ago. He denies experiencing any current side effects and notes that previous symptoms of irritability and restlessness have resolved. He spent the past week camping with his rashaun, which he described as significantly beneficial to both his mental health and their relationship. During the session, the patient appeared smiling, engaged, and responsive, with no signs of delayed reactions or social withdrawal. A review of DSM-5 outcome scores indicates an overall 23% reduction in symptoms. Notably, there has been a decrease in depressive and irritability symptoms since admission. However, there was a noted increase in the anxiety domain (refer to treatment plan review for further details). As the patient is expected to discharge from the Intensive Outpatient Program (IOP) within the next two weeks, this session focused on discharge planning. The patient previously met with a psychologist at [facility] ([facility]) on 05/08/25 who specializes in sexual compulsions but has opted not to continue therapy with her, citing vague reasons. We explored other local therapists specializing in compulsions; however, after reviewing their websites over the past week, the patient expressed disinterest in pursuing care with them. The patient expressed a preference for a [facility] counselor with experience in compulsive behaviors. We identified a potential provider through [facility], and the patient was tasked with contacting the office to schedule an appointment this week. The patient is not currently taking any psychiatric medications and has expr essed no interest in pursuing pharmacological treatment at this time. As such, no psychiatric referral was made. Risks/Concerns:: No risks or concerns noted. Denies SI or HI. Progress Toward Goals/Plan:: The patient continues to demonstrate progress and has maintained consistent attendance in the IOP program. While engagement in group sessions remains limited, he is attentive and actively takes notes, indicating cognitive presence and receptivity. Over the past two weeks, the patient experienced mild decompensation, likely related to side effects and possible withdrawal symptoms following medication discontinuation. Despite this, he currently reports mood stability. During the session, the patient discussed the role of shame in his mental health and shared that he has been independently researching ?shame cycles.? He is increasingly focused on both insight and actionable strategies, marking a sign ificant step forward in his therapeutic process. Following the previous session, he implemented coping strategies that helped him navigate emotional and social challenges last week. Overall, there has been a reduction in symptoms since admission. However, the patient continues to experience notable anxiety, relationship conflict, and reliance on maladaptive coping mechanisms. When experiencing anxiety, stress, or depressive symptoms, he tends to emotionally withdraw, which limits his ability to utilize coping skills and access social supports. These episodes of withdrawal can persist for several days. The patient will continue in [facility] to support safety, prevent further decompensation or psychiatric re-admission, and improve overall functioning in preparation for returning to work. He plans to resume work on a reduced schedule starting 06/09/25. Additionally, a couple?s session with his fisusanne?e is scheduled for next week to support relational dynamics and communication. Time Stopped:: 12:15
--- NOTE | 2025-05-28 11:15 | BH.SGPN.GN ---
Behaviors/Verbalizations/Mental Status: []Pt alert and oriented, casually dressed and groomed. Eye contact fair. Motor activity appropriate. Speech within normal limits. Affect constricted, mood dysthymic. Thoughts linear, logical, no signs of hallucinations or delusions. Client Response/Progress/Benefit: [] Pt responded well to session, attentive and engaged in group discussions and activity. Actively engaged in continued discussion about up activities and down activities. Active participant as group discussed values and the benefits that knowing one's values can have on one's mental health. Client did complete provided worksheet, but did not share with group what value he would like to work on. Benefited from increased awareness of their up activities and how incorporating their values into behavioral activation goals can positively impact mental health. Will continue in IOP to challenge distortions, challenge distortions, and prevent decompensation.
--- NOTE | 2025-05-30 09:00 | BH.SGPN.GN ---
Behaviors/Verbalizations/Mental Status: [] Pt alert and oriented, neatly dressed and groomed. Eye contact good. Motor activity appropriate. Speech within normal limits. Affect constricted, mood dysthymic. Thoughts linear, logical, no signs of hallucinations or delusions. Reviewed pt?s symptom tracker, no risk for suicidal ideation, plan, or intent 05/30/25. Client Response/Progress/Benefit: []Pt was an active participant in group discussions. Attentive. Able to identify mental health wins including ?I?m trying to not lie to myself and I have been working a lot of self-awareness.? Pt's stressor today is ?this journey o self-discovery has been stressful.? The group offered pt encouragement and emotional support which pt reported was helpful. Pt is feeling ?more positive than neutral.? this morning. Pt receptive to feedback from peers. Benefited from group support, encouragement, and feedback. Progress noted. Will continue IOP tx to reinforce healthy coping skills, combat distortions, and increase distress tolerance skills. Narrative Note: []
--- NOTE | 2025-05-30 10:10 | BH.SGPN.GN ---
Behaviors/Verbalizations/Mental Status: []Pt alert and oriented, casually dressed and groomed. Eye contact good. Motor activity appropriate. Speech within normal limits. Affect constricted, mood euthymic. Thoughts linear, logical, no signs of hallucinations or delusions. Client Response/Progress/Benefit: [] Pt responded well to session AEB sharing and listening attentively to others. Group provided examples of types of support (professional, pets, hobbies, community, spouse, brodie, etc) as well as benefits of having social support, including: validation, get perspective, and accountability. Pt also participated in group discussion regarding the barriers to accessing support and pt?s barriers included; lack of follow through, fear of rejection, and lack of vulnerability. Pt participated in experiential activity illustrating the impact communication, boundaries, and patience play in creating healthy support systems. Pt appeared to benefit from increased knowledge of the benefits of social support and greater self-awareness. Pt to continue IOP to improve daily functioning and reduce negative thinking patterns. ? Narrative Note: []
--- NOTE | 2025-05-30 11:15 | BH.SGPN.GN ---
Behaviors/Verbalizations/Mental Status: []Client alert and oriented, casually dressed and groomed. Eye contact good. Motor activity appropriate. Speech within normal limits. Affect congruent, mood content. Thoughts linear, logical, no signs of hallucinations or delusions. Client Response/Progress/Benefit: [] Pt participated throughout AEB contributing to discussion, providing examples, and taking notes. Pt provided input during discussion on the types of support our supports can provide. Pt able to identify current support system and barriers that get in the way of using supports. Pt reported after identifying what type of supports pt receives, pt gained awareness that pt could benefit from more emotional support by putting more effort into consistently engaging in self-reflection and journaling. Pt seemed to benefit from identifying the type of support pt needs to work on improving. Pt recommended to continue IOP tx to promote increase positive self-talk, improve self-compassion, and prevent decompensation. Narrative Note: []
--- NOTE | 2025-06-03 09:05 | BH.SGPN.GN ---
Behaviors/Verbalizations/Mental Status: [] Eye contact is fair. Motor activity is appropriate. Appearance is casual. Speech is Appropriate. Mood is dysthymic. Affect is congruent. Thoughts are linear and logical. No evidence of psychosis. Reviewed daily check in sheet and no reports of suicidal ideations or intent. Client Response/Progress/Benefit: [] Pt participated when prompted. Attentive. Daily symptom tracker notes no significant distress with only a 1/5 for depression, however pt reports poor energy and motivation which resulted in isolation and not accomplishing things all weekend. Despite this he was able to identify mental health wins which included practicing acceptance and not withdrawing during an interaction with fitony. Pointed out how difficult it was not to withdraw and stop talking during conversation however in the end it proved beneficial. Feels calm today. Progress noted. Benefited from group support, encouragement, and feedback. Will continue in IOP to maintain safety, prevent decompensation/re-admission to psych, and to improve functioning to return to work. Narrative Note: []
--- NOTE | 2025-06-03 10:10 | BH.SGPN.GN ---
Behaviors/Verbalizations/Mental Status: []Pt alert and oriented, neatly dressed and groomed. Eye contact good. Motor activity appropriate. Speech within normal limits. Affect constricted, mood euthymic. Thoughts linear, logical, no signs of hallucinations or delusions. Client Response/Progress/Benefit: [] Pt was an active participant AEB taking notes and engaging in group activity. Connected with the topic of pitfalls and listened to group discussion on barriers that prevent from choosing a healthier path to mental wellness. Group worked together to identify examples of personal pitfalls. These examples included; shutting down, not asking for help, negative thinking patterns, avoidance, and isolation. Pt benefited from group as Pt learned to better identify potential barriers to improving mental health symptoms. Identified personal barrier guilt and negative thinking. Pt will continue IOP tx to promote use of healthy coping skills, increase self-compassion, and improve daily functioning. ? Narrative Note: []
--- NOTE | 2025-06-03 11:10 | BH.SGPN.GN ---
Behaviors/Verbalizations/Mental Status: []Client alert and oriented, casually dressed and groomed. Eye contact good. Motor activity appropriate. Speech within normal limits. Affect congruent, mood content. Thoughts linear, logical, no signs of hallucinations or delusions. Client Response/Progress/Benefit: [] Pt receptive of session, engaged throughout AEB Pt actively listening and contributing to discussion as well as taking notes.? Pt participated in the experiential activity and did well to communicate ideas with peers and manage emotions. Pt attentive as group processed how the emotions and perspective of the group impacted the activity. Group worked together to identify different coping skills to help manage pitfalls. Pt identified a pitfall they struggle with as ?lack of accountability?. Pt plans to work on their pitfall by challenging themselves to reach out for help when needed, as well as opposite action. Benefited from identifying personal pitfalls and strategies to overcome these pitfalls. Pt will continue IOP tx to prevent decompensation, improve daily functioning, and increase self-compassion. ? Narrative Note: []
--- NOTE | 2025-06-04 09:05 | BH.SGPN.GN ---
Behaviors/Verbalizations/Mental Status: [] Eye contact is good. Motor activity is appropriate. Appearance is casual. Speech is Appropriate. Mood is dysthymic. Affect is congruent. Thoughts are linear and logical. No evidence of psychosis. Reviewed daily check in sheet and no reports of suicidal ideations or intent. Client Response/Progress/Benefit: [] Pt participated when prompted. Attentive. Daily symptom tracker notes 10/13 for depression and anxiety. Able to identify healthy skills use. ? I?m trying to stay outside of myself? He elaborated on this briefly. Pushing through urge to withdraw from conversation which has been helpful with those around him. Feeling ? anxious? today. Progress noted. Benefited from group support, encouragement, and feedback. Will continue in IOP to maintain safety, prevent decompensation, and improve functioning to return to work. Narrative Note: []
--- NOTE | 2025-06-04 10:10 | BH.SGPN.GN ---
Behaviors/Verbalizations/Mental Status: [] Pt alert and oriented, casually dressed and groomed. Eye contact good. Motor activity appropriate. Speech within normal limits. Affect congruent. mood depressed. Thoughts linear, logical, no signs of hallucinations or delusions. Client Response/Progress/Benefit: [] Pt was an engaged participant AEB listening attentively to others, taking notes, and providing feedback in group discussions. Attentive during psychoeducation AEB by note taking. Pt worked along with peers in groups to define inappropriate guilt and appropriate guilt. Group worked together to provide examples of both inappropriate and appropriate guilt. Group identified a lashing out and breaking something as appropriate guilt examples. Group identified setting a boundary and needing help as having inappropriate guilt about. Pt able to connect impact inappropriate guilt can have on MH and overall functioning. Noted that it has negatively impacted his view of self. Benefited from increased awareness of guilt and the differences between appropriate and inappropriate guilt. Pt to continue IOP tx to prevent decompensation, gain healthy coping skills, and increase communication skills. Narrative Note: []
--- NOTE | 2025-06-04 10:10 | BH.SGPN.GN ---
Behaviors/Verbalizations/Mental Status: [] Pt alert and oriented, casually dressed and groomed. Eye contact good. Motor activity appropriate. Speech within normal limits. Affect congruent, mood anxious and dysthymic. Thoughts linear, logical, no signs of hallucinations or delusions. Client Response/Progress/Benefit: [] Pt participated in group discussions. Attentive during psychoeducation on the CBT [facility] (Thoughts, Behaviors, Emotions). Engaged in group discussion on how thoughts and behaviors can contribute to maintaining adverse feelings, such as depression, anxiety, and irritability. Completed worksheet in which pt identified obstacles and/or thoughts that are keeping them stuck. Shared obstacles that included; negative self-talk, shutting down, inappropriate guilt. Pt benefited from increased awareness of the basis of CBT therapy as well as specific thoughts that are impacting pt's progress. Will continue in IOP to prevent decompensation, increase healthy coping, and improve functioning. Narrative Note: []
--- NOTE | 2025-06-04 11:10 | BH.SGPN.GN ---
Behaviors/Verbalizations/Mental Status: []Eye contact is good. Motor activity is appropriate. Appearance is casual. Speech is Appropriate. Mood is anxious. Affect is flat. Thoughts are linear and logical. No evidence of psychosis. Client Response/Progress/Benefit: [] Pt was an engaged participant AEB listening attentively to others and providing input throughout group. Pt along with group members, identified strategies to manage inappropriate guilt. Identified a personal example of inappropriate guilt as ?not letting myself feel alysha when others are struggling.? Pt wants to work on combatting inappropriate guilt by identifying if what I?m feeling is appropriate or inappropriate.? Pt seemed to benefit from learning about strategies to manage appropriate and inappropriate guilt. Pt to continue IOP tx to promote use of healthy coping skills and combat distortions. Narrative Note: []
--- NOTE | 2025-06-04 12:05 | BH.MDN ---
Multi-Disciplinary Note Note Family: Time Started:: 12:05 Date: 06/04/25 Purpose of session/treatment goals addressed:: Family session to review progress in IOP level of care, improve communication strategies, and involve tania into treatment. Eye Contact:: Fair Motor Activity:: Appropriate Appearance:: Casual Speech:: Appropriate Mood:: Dysthymic Affect:: Congruent Thoughts:: Linear, Logical and No evidence of hallucinations/delusions noted Staff Interventions:: psychoeducation on: (communication strategies) and other Client Response:: The patient attended the session accompanied by his fipam Mary. The session began with a review of the patient?s progress within the Intensive Outpatient Program (IOP) level of care. Outcome measures and treatment plan goals were briefly revisited to assess current status and direction. The majority of the session focused on relational dynamics, specifically communication challenges within the couple?s relationship. Mary expressed ongoing concerns regarding the patient?s tendency to ?shut down? during conflict, which she described as a significant barrier to effective communication. She reported that this pattern often escalates tension and leads to mutual frustration and anger. Mary shared her perception that the patient?s withdrawal may be a form of retaliation, stating, ?It feels like a way to get back at me.? The patient provided insight into his behavior, attributing it to maladaptive conflict resolution strategies learned during childhood. Mary voiced frustration over the avoidance of sensitive topics, which she views as detrimental to the health of their relationship. She emphasized the importance of transparency and engagement during conflict, identifying her non-negotiables as ?no lying? and ?no silence.? Despite these challenges, Mary acknowledged noticeable improvements in the patient?s communication over the past few weeks. She recognized his efforts to apply insight gained in treatment and expressed cautious optimism, stating, ?I think there is hope.? The couple reviewed several recent examples of healthy and assertive communication, highlighting progress and reinforcing therapeutic gains Risks/Concerns:: No risks or concerns noted. Progress Toward Goals/Plan:: Progress noted. There continues to be several opportunities for improvement in the relationship however both appear to be motivated for change. Smiling and interacting well during the session. Therapist highlighted areas of healthy communication and allowed space for discussion regarding areas of communication challenges. Strongly encouraged continued couple's counseling in the future. Pt has yet to reach out to set up counseling at [facility] and agreed to follow through today. At this point both the patient and lindseyanc? do not believe that medication intervention has been beneficial due in large report to side effects noted 2 weeks ago. Time Stopped:: 13:08
--- NOTE | 2025-06-05 09:00 | BH.SGPN.GN ---
Behaviors/Verbalizations/Mental Status: [] Eye contact is poor. Motor activity is appropriate. Appearance is casual. Speech is Appropriate but limited. Mood is depressed. Affect is constricted. Thoughts are linear and logical. No evidence of psychosis. Reviewed daily check in sheet and no reports of suicidal ideations or intent. Client Response/Progress/Benefit: [] Pt was an inactive participant in group discussions. Looking down at floor the majority of session. Declined to share or offer feedback/suggestions to fellow participants. Did appear to benefit from group support however. Pt recommended continued IOP tx to improve mood stability, prevent decompensation, and promote healthy skill application. Narrative Note: []
--- NOTE | 2025-06-05 10:00 | BH.SGPN.GN ---
Behaviors/Verbalizations/Mental Status: []Pt alert and oriented, neatly dressed and groomed. Eye contact good. Motor activity appropriate. Speech within normal limits. Affect constricted, mood euthymic. Thoughts linear, logical, no signs of hallucinations or delusions. Client Response/Progress/Benefit: [] Pt was an active participant in group discussion and experiential activity. Attentive during psychoeducation on resilience and provided input throughout. Participated in interactive discussion with peers on the definition of resilience and where it comes from. Group identified that resiliency can be impacted by; past experiences, upbringing, and personality traits. Able to relate experiential activity of group juggle to topics of resilience. Worked with peers in small group in which they identified factors that contribute to resilience and did well providing ideas. Benefited from increased awareness of resilience and the factors that contribute to building resilience. Will continue in IOP tx to combat distortions, improve emotional regulation, and gain healthy support. Narrative Note: []
--- NOTE | 2025-06-05 11:00 | BH.SGPN.GN ---
Behaviors/Verbalizations/Mental Status: [] Eye contact is good. Motor activity is appropriate. Appearance is casual. Speech is Appropriate. Mood is dysthymic. Affect is congruent. Thoughts are linear and logical. No evidence of psychosis. Client Response/Progress/Benefit: [] Pt responded well to session AEB completing the resilience worksheet provided. Limited participation in the discussion unless prompted however did work cooperatively with group to identify strategies to enhance each of the components discussed. Pt was able to identify resiliency traits they already possess as well as areas related to resilience to focus on in the future which included take more decisive action. Pt seemed to benefit from discussing strategies for improving personal resilience and identifying resilience traits Pt already possesses. Will continue IOP tx to prevent decompensation/re-admission to psych unit, maintain safety, and to improve functioning to return to work. Narrative Note: []
== END 2025-06-08 23:59 ==
LOC: BHIOP 07:50
PROVIDERS: Referring Provider Student in an Organized Health Care Education/Training Program; Visit Provider Student in an Organized Health Care Education/Training Program
DX: F32.9 Major depressive disorder, single episode, unspecified (principal); F43.10 Post-traumatic stress disorder, unspecified
CPT/HCPCS: S9480; 90837; 90847; 90853

== ENCOUNTER 2025-06-10 07:14 | Outpatient (RCR) | payer OTHER, SELFPAY ==
--- NOTE | 2025-06-10 09:05 | BH.SGPN.GN ---
Behaviors/Verbalizations/Mental Status: [] Eye contact is good. Motor activity is appropriate. Appearance is casual. Speech is Appropriate. Mood is dysthymic. Affect is congruent. Thoughts are linear and logical. No evidence of psychosis. Reviewed daily check in sheet and no reports of suicidal ideations or intent. Client Response/Progress/Benefit: [] Pt participated when prompted. Attentive. Daily symptom tracker notes 10/13 for depression. Attended an large social event which increased anxiety however was able to manage. Also discussed a recent event in which he was able to recognize in appropriate guilt and develop strategies to process and work through rather than blame himself and ruminate. Scheduled to return to work this week which is anxiety producing. Progress noted. Benefited from group support, encouragement, and feedback. Will continue in IOP to prevent decompensation/re-admission, increase healthy coping, and improve functioning to return to work. Narrative Note: []
--- NOTE | 2025-06-10 10:10 | BH.SGPN.GN ---
Behaviors/Verbalizations/Mental Status: [] Eye contact is fair. Motor activity is appropriate. Appearance is casual. Speech is Appropriate. Mood is dysthymic. Affect is constricted. Thoughts are linear and logical. No evidence of psychosis. Client Response/Progress/Benefit: [] Pt was an semi-active participant during interactive group discussions. Attentive during psychoeducation on the six types of boundaries (physical, emotional, intellectual, sexual, time, and material) AEB note-taking and providing limited input. Along with peers contributed to interactive discussion on defining what a boundary is in mental health. Pt along with peers identified challenges to setting boundaries such as guilt, feeling selfish, negative past experiences, fear of conflict, and limited knowledge on setting boundaries. Pt along with peers identified the benefits to setting boundaries such as better relationships, decreased stress, increased confidence, and feeling more heard. Group discussed the mental health benefits to establishing boundaries at work, school, and home. Pt benefited from increased awareness and insight on the importance/benefit to setting health boundaries. Will continue in IOP to challenge distorted thoughts, improve healthy coping skills, and prevent decompensation.
--- NOTE | 2025-06-10 11:10 | BH.SGPN.GN ---
Behaviors/Verbalizations/Mental Status: []Pt alert and oriented, casually dressed and groomed. Eye contact good. Motor activity appropriate. Speech within normal limits. Affect congruent, mood content. Thoughts linear, logical, no signs of hallucinations or delusions. Client Response/Progress/Benefit: [] Client responded well to session AEB listening attentively to peers, providing input, as well as taking notes throughout. Group discussed different styles of boundary setting. Participated in small group discussion brainstorming various strategies for improving healthy boundary setting. Pt took time to complete reflection on which skills would like to implement to improve boundaries. Plans to challenge self by starting with small internal boundaries before working towards setting them with others. Seemed to benefit from increased awareness of how different boundary styles can impact mental health. Will continue IOP tx prevent decompensation, increase use of healthy coping skills, and reduce negative thinking patterns. Narrative Note: []
--- NOTE | 2025-06-11 09:05 | BH.SGPN.GN ---
Behaviors/Verbalizations/Mental Status: [] Eye contact is good. Motor activity is appropriate. Appearance is casual. Speech is Appropriate. Mood is anxious. Affect is congruent. Thoughts are linear and logical. No evidence of psychosis. Reviewed daily check in sheet and no reports of suicidal ideations or intent. Client Response/Progress/Benefit: [] Pt participated when prompted. Attentive. Daily symptom tracker notes 10/13 for depression/anxiety. Reports being ?anxious? today as he is scheduled to return to work tomorrow. Discussed briefly his desire to seek a new career as he ?hates? his job. Elaborated on job stressors. Group attempted to reframe thoughts however he was resistant and discussed seeking new employment. Outside of job stressor he reports relationship with fianc? is going well as they ?spent quality time out by the fire? last night. Progress noted. Benefited from group support, encouragement, and feedback. Will continue in IOP to maintain safety, prevent decompensation/re-admission to psych, and to improve functioning to return to work Narrative Note: []
--- NOTE | 2025-06-11 10:10 | BH.SGPN.GN ---
Behaviors/Verbalizations/Mental Status: [] Client alert and oriented, casually dressed and groomed. Eye contact good. Motor activity appropriate. Speech within normal limits. Affect congruent, mood depressed. Thoughts linear, logical, no signs of hallucinations or delusions. Client Response/Progress/Benefit: [] Client responded well to session AEB contributing to discussion, taking notes, and listening attentively to others. Group discussed the benefits of managed anger and anger as a secondary emotion. Client participated in anger iceberg discussion. Group reported outward personal signs of anger as lashing out verbally, physical fights, destruction of property, self-harm, and self-sabotage. Group Identified underlying emotions that contribute to anger including being dismissed, rejection, assumptions, being lied too, and micromanaging. Appeared to benefit from increased knowledge of the underlying emotions that impact anger and increased self-awareness of the internal and external consequences of anger. Client will continue IOP program to stabilize mood, reduce negative thinking patterns, and prevent decompensation. Narrative Note: []
--- NOTE | 2025-06-11 11:10 | BH.SGPN.GN ---
Behaviors/Verbalizations/Mental Status: [] client alert and oriented, casually dressed and groomed. Eye contact fair. Motor activity appropriate. Speech within normal limits. Affect constricted, mood dysthymic. Thoughts linear, logical, no signs of hallucinations or delusions. Client Response/Progress/Benefit: [] Client was an engaged participant throughout group AEB client providing input throughout discussion. Client contributed to the continued discussion of how people express anger as well as the underlying emotions of anger. Client participated in group activity that highlighted strategies to cope with anger. Group brainstormed healthy coping skills to help prevent anger and cope with it in the moment which included: mindfulness, deep breathing, journaling, going outside, and music. Client stated he would like to try the skill of temperature change by holding ice to help manage his anger. Client appeared to benefit from brainstorming with the group potential strategies to manage anger in healthy ways. Recommended continued IOP to challenge distortions, improve healthy coping, and prevent decompensation.
--- NOTE | 2025-06-11 12:05 | BH.COMM ---
Communication Note Communication with Client Communication Note: Met with pt briefly after group. Reports improved communication with fianc? after recent couple's session. Believes that things are better. He gave an example of recently identifying inappropriate guilt and utilizing learned skills to work through his cognitive distortions and negative thoughts. He was able to work through this guilt, share with fianc? how this impacted him, and they were able to laugh and connect over it. Plan is to return to work tomorrow. We discussed expectations and strategies for the transition back. Pt has still not reached out to [facility] to set up counseling despite being asked several times. He agrees to reach out today. He is currently linked with psychologist through [facility] which he can return however he has requested a new therapist. Refer to previous notes for more information. Overall his mood has been stable this week. Plan is to discharge from [facility] on 06/13/25.
--- NOTE | 2025-06-13 10:10 | BH.SGPN.GN ---
Behaviors/Verbalizations/Mental Status: [] Eye contact is good. Motor activity is appropriate. Appearance is casual. Speech is Appropriate. Mood is euthymic and anxious. Affect is constricted. Thoughts are linear and logical. No evidence of psychosis Client Response/Progress/Benefit: [] Pt receptive of session, actively engaged throughout AEB taking notes, providing input, and contributing in small group discussion. Appeared to connect with group topic of automatic thoughts and cognitive distortions, as well as the impact of thought patterns on mental health, coping behaviors, and relationships. This particular group is very heavy on psychoeducation and pt appeared to connect with distortions and how they can impact functioning. Identified struggling with labeling distortions. Pt appeared to benefit from gaining insight on distorted thinking patterns and how this impacts overall mental health. Client discharging successfully from program today. Narrative Note: []
--- NOTE | 2025-06-13 11:10 | BH.SGPN.GN ---
Behaviors/Verbalizations/Mental Status: [] Eye contact is good. Motor activity is appropriate. Appearance is casual. Speech is Appropriate. Mood is euthymic and anxious. Affect is placid. Thoughts are linear and logical. No evidence of psychosis. Client Response/Progress/Benefit: [] Pt was an active participant and responded well to session AEB input and examples during group activity. Group discussed and practiced methods of reframing cognitive distortions. Client participated in identifying cognitive distortions when examples were provided. Client discussed in group the different strategies to overcome the distortions. Client identified cognitive distortion they used most often and made plan to identify and challenge thoughts that contribute to it as homework over the next couple of days. Client discharging successfully from program today. Narrative Note: []
--- NOTE | 2025-06-13 12:00 | BH.MDN_ITS ---
Multi-Disciplinary Note Note 30-min Individual: Time Started:: 12:00 Date: 06/13/25 Purpose of session/treatment goals addressed:: Reviewed outcome scores. Discharge planning. Eye Contact:: Fair Motor Activity:: Appropriate Appearance:: Casual Speech:: Appropriate Mood:: Dysthymic Affect:: Congruent Thoughts:: Linear, Logical and No evidence of hallucinations/delusions noted Staff Interventions:: motivational interviewing, discharge planning, reviewed DSM-5 and other (reviewed coping and active strategies) Client Response:: Today tobar the patient's final day in the Intensive Outpatient Program (IOP) level of care. Outcome measures were reviewed, indicating an overall 55% reduction in symptoms since admission. Notably, there was a 60% reduction in depressive symptoms and a 67% reduction in anger-related symptoms. While there was no change in the anxiety domain, this stability suggests that symptoms have not worsened. Of particular significance, the patient demonstrated marked improvement in the personality functioning domain, which encompasses self-concept and interpersonal relationships. This progress reflects an increased ability to connect with others, derive enjoyment from relationships, and a clearer understanding of personal identity and life goals. Despite these positive outcomes, the patient reported experiencing stress related to a verbal conflict with his fianc?e two days ago. During this incident, he reverted to maladaptive coping through emotional withdrawal. He described the antecedents of the conflict, which were rooted in feelings of guilt. Although he was able to recognize poor decision-making and expressed remorse, he struggled to communicate these feelings effectively and instead engaged in rumination and avoidance.The therapist provided cognitive and emotional challenges to the patient?s current thought patterns and encouraged the development of actionable strategies to address interpersonal conflict?both in the present and moving forward. Risks/Concerns:: No risks or concerns noted. Daily symptom tracker showed no anxiety, agitation, depression, or suicidal thoughts. Progress Toward Goals/Plan:: The patient has demonstrated significant clinical progress during their time in the Intensive Outpatient Program ([facility]), as evidenced by outcome measures and recent behavioral observations. Over the past two weeks, the patient has shown consistent and increased engagement, including participation in a couple?s session with his fianc?e. Despite objective improvements, the patient continues to struggle with recognizing his own progress, responding with uncertainty (I guess so) when asked directly. His focus remains on a situational stressor?a verbal conflict with his fianc?e two days ago?which has led to emotional withdrawal and difficulty initiating action to resolve the issue. While the patient has made strides in independently utilizing action-oriented coping strategies, he continues to experience challenges with rumination and avoidance. During today?s session, the patient responded well to therapeutic intervention aimed at developing strategies to address the current stressor. He was scheduled to return to work yesterday but called off, citing dissatisfaction with his job. He expressed that he hates his current position due to its high demands and is actively pursuing a career change. He plans to return to work tomorrow. The patient has not yet followed through with scheduling an appointment with an individual therapist, despite multiple reminders. He reports having emailed [employer] and is awaiting a response. He is currently linked with a psychologist through [facility] ([facility]) and has been advised to schedule with that provider if he does not hear back from [employer]. There appears to be a pattern of self-sabotage, as the patient frequently fails to follow through with simple tasks or requests made by both the therapist and his fianc?e. Examples include calling off work on his scheduled return date and not initiating contact with a therapist despite reminders. The patient will proceed with the planned discharge from [facility], as outcome measures indicate a significant reduction in symptoms, and he no longer meets criteria for this level of care. Continued outpatient support is recommended to address residual challenges with follow-through, emotional regulation, and interpersonal functioning. Time Stopped:: 12:45
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
== END 2025-06-13 12:56 | disposition home or self-care (01) ==
LOC: BHIOP 07:14
PROVIDERS: Referring Provider Student in an Organized Health Care Education/Training Program; Visit Provider Student in an Organized Health Care Education/Training Program
DX: F32.9 Major depressive disorder, single episode, unspecified (principal); F43.10 Post-traumatic stress disorder, unspecified
CPT/HCPCS: S9480; 90832; 90853